=== PATIENT | male | born 1960 | race African-American/Black ===

== ENCOUNTER 2025-04-07 11:49 | Inpatient (IN) | payer OTHER ==
[~2025-04-07] VITALS: Ht 185.4 cm; Wt 129.3 kg
[2025-04-07] MEDS ORDERED: ONDANSETRON HCL/PF 4 MG/2 ML VIAL ONE ×2 (12:36→16:32)
[2025-04-07] MEDS ORDERED: MORPHINE SULFATE INJ 4 MG/ML DISP.SYRIN ONE ×2 (12:37→16:32)
[2025-04-07] MEDS: ONDANSETRON HCL/PF - ER 4 MG/2 ML VIAL IV ONE ×2 (12:57→16:34)
[2025-04-07] MEDS: MORPHINE SULFATE INJ 2 MG/ML DISP.SYRIN IV ONE ×2 (12:59→16:35)
[2025-04-07] MEDS: IV NS 0.9% 1,000 ML BAG IV ONE (13:00)
[2025-04-07 13:08] LABS: PLATELET COUNT (AUTO) 297 K/uL (150-450); RED BLOOD CELL COUNT(AUTO) 4.51 MIL/uL (4.5-6.0); RED CELL DISTRIBUTION WIDTH 13.7 % (11.5-15.0); WHITE BLOOD COUNT (AUTO) 8.5 K/uL (4.3-11.0)
[2025-04-07 13:20] LABS: CALCIUM, SERUM 9.3 mg/dL (8.5-10.1); CREATININE 1.0 mg/dL (0.6-1.3); SODIUM SERUM 133.0 mmol/L (136-145); UREA NITROGEN, BLOOD 20.0 mg/dL (7-18)
[2025-04-07 13:26] LABS: ASPARTATE AMINOTRANSFERASE 23.0 U/L (15-37); TOTAL PROTEIN, SERUM 8.2 g/dL (6.4-8.2)
[2025-04-07 13:28] LABS: INR 1.02 (0.91-1.10); LACTIC ACID 1.3 mmol/L (0.4-2.0)
[2025-04-07] MEDS ORDERED: APIX5TAB PO (13:42)
[2025-04-07] MEDS ORDERED: HYDR25TA4 PO (13:42)
[2025-04-07] MEDS ORDERED: AMLO-212 PO (13:42)
[2025-04-07 15:20] LABS: APPEARANCE,URINE CLEAR (CLEAR); BLOOD, URINE TRACE-INTA Ery/uL (NEGATIVE); LEUKOCYTE ESTERASE ,URINE NEGATIVE (NEGATIVE); NITRITE, URINE NEGATIVE (NEGATIVE); UGLUCOSE NEGATIVE (NEGATIVE)
[2025-04-07 15:35] LABS: ADD URINE CULTURE NO
[2025-04-07 15:36] LABS: SQUAMOUS EPITHELIAL CELL,UR Rare /HPF (None Seen)
[2025-04-07] MEDS: CEFEPIME 1 GM in IV D5W 50 ML IV ONE (17:38)
[2025-04-07] MEDS: VANCOMYCIN 1 GM in IV D5W 250 ML IV ONE (17:43)
[2025-04-07 20:00] VITALS: BP 154/92; TEMP 99; O2SAT 99
[2025-04-07] MEDS ORDERED: DOSING PER PHARMACY-VANCOMYCIN IV XX PRN (21:00)
[2025-04-07] MEDS ORDERED: HEPARIN SODIUM, PORCINE 5000 UNITS/1 ML VIAL SQ SCH (21:00)
[2025-04-07] MEDS ORDERED: ONDANSETRON HCL/PF 4 MG/2 ML VIAL IVP PRN (21:00)
[2025-04-07] MEDS ORDERED: Z GUARD REMEDY 4 OZ OINT TP PRN (21:00)
[2025-04-07] MEDS ORDERED: MAG HYDROX/AL HYDROX/SIMETH 30 ML UDC PO PRN (21:00)
[2025-04-07] MEDS ORDERED: MAGNESIUM HYDROXIDE 30 ML UDC PO PRN (21:00)
[2025-04-07] MEDS ORDERED: ZOLPIDEM TARTRATE 5 MG TABLET PO PRN (21:00)
[2025-04-07] MEDS: HYDROCODONE/APAP 5/325MG TABLET PO PRN (22:03)
[2025-04-08] MEDS ORDERED: CEFEPIME 1 GM VIAL ONE (00:45)
[2025-04-08 04:33] VITALS: BP 146/82; TEMP 98.6; O2SAT 99
[2025-04-08] MEDS: CEFEPIME 2 GM in IV D5W 100 ML IV ONE (05:01)
[2025-04-08] MEDS: VANCOMYCIN 1 GM in IV D5W 250 ML IV ONE (06:08)
[2025-04-08] MEDS: VANCOMYCIN 1 GM /D5W 250 ML PB IV ONE (07:00)
[2025-04-08 07:28] LABS: PLATELET COUNT (AUTO) 271 K/uL (150-450); RED BLOOD CELL COUNT(AUTO) 3.93 MIL/uL (4.5-6.0); RED CELL DISTRIBUTION WIDTH 13.4 % (11.5-15.0); WHITE BLOOD COUNT (AUTO) 6.8 K/uL (4.3-11.0)
[2025-04-08 07:52] LABS: CALCIUM, SERUM 8.6 mg/dL (8.5-10.1); CREATININE 0.9 mg/dL (0.6-1.3); PHOSPHORUS 3.3 mg/dL (2.5-4.9); SODIUM SERUM 136.0 mmol/L (136-145); UREA NITROGEN, BLOOD 13.0 mg/dL (7-18)
[2025-04-08 08:00] VITALS: BP 150/84; TEMP 99.5; O2SAT 99
[2025-04-08] MEDS: HYDROCHLOROTHIAZIDE 25 MG TABLET PO SCH (10:08)
[2025-04-08] MEDS: AMLODIPINE BESYLATE 5 MG TABLET PO SCH (10:08)
[2025-04-08] MEDS: APIXABAN 5 MG TABLET PO SCH (10:09)
[2025-04-08] MEDS: PANTOPRAZOLE 40 MG TABLET.DR PO SCH (10:09)
[2025-04-08 16:00] VITALS: BP 133/86; TEMP 98.9; O2SAT 100
[2025-04-08] MEDS: CEFEPIME 2 GM in IV D5W 100 ML IV SCH (16:06)
[2025-04-08 16:15] LABS: HIV-1/2 ANTIBODY NON REACTIVE (NONREACTIVE)
[2025-04-08] MEDS: VANCOMYCIN HCL 1.25 GM in IV D5W 250 ML IV SCH (17:00)
[2025-04-08 20:00] VITALS: BP 147/76; TEMP 98.5; O2SAT 100
[2025-04-09 04:00] VITALS: BP 133/67; TEMP 98.9; O2SAT 100
[2025-04-09 07:02] LABS: PLATELET COUNT (AUTO) 317 K/uL (150-450); RED BLOOD CELL COUNT(AUTO) 4.13 MIL/uL (4.5-6.0); RED CELL DISTRIBUTION WIDTH 13.5 % (11.5-15.0); WHITE BLOOD COUNT (AUTO) 6.4 K/uL (4.3-11.0)
[2025-04-09 07:54] LABS: CALCIUM, SERUM 9.3 mg/dL (8.5-10.1); CREATININE 1.1 mg/dL (0.6-1.3); SODIUM SERUM 135.0 mmol/L (136-145); UREA NITROGEN, BLOOD 15.0 mg/dL (7-18)
[2025-04-09 08:10] VITALS: BP 147/79; TEMP 98.2; O2SAT 100
[2025-04-09] MEDS: DAKINS QUARTER STRENGTH (0.125%) 480 ML BOTTLE TOP SCH (08:25)
[2025-04-09 16:10] VITALS: BP 140/79; TEMP 98.1; O2SAT 100
[2025-04-09 20:00] VITALS: BP 141/85; TEMP 98.5; O2SAT 96
[2025-04-10 04:00] VITALS: BP 140/72; TEMP 98; O2SAT 94
[2025-04-10 07:25] LABS: CALCIUM, SERUM 9.3 mg/dL (8.5-10.1); CREATININE 1.0 mg/dL (0.6-1.3); SODIUM SERUM 137.0 mmol/L (136-145); UREA NITROGEN, BLOOD 17.0 mg/dL (7-18)
[2025-04-10 08:00] VITALS: BP 126/79; TEMP 97.5; O2SAT 98
[2025-04-10] MEDS: ACETAMINOPHEN 325 MG TABLET PO PRN (11:24)
[2025-04-10 16:00] VITALS: BP 128/71; TEMP 98.4; O2SAT 100
[2025-04-10] MEDS: HYDROCODONE/APAP 10/325MG TABLET PO PRN (16:51)
[2025-04-10 19:06] LABS: CHLAMYDIA TRACHOMATIS NAA Negative (Negative); NEISSERIA GONORRHOEAE NAA Negative (Negative)
[2025-04-10 20:00] VITALS: BP 152/77; TEMP 98.1; O2SAT 99
[2025-04-11 04:00] VITALS: BP 155/92; TEMP 98.2; O2SAT 99
[2025-04-11 08:00] VITALS: BP 142/80; TEMP 98.1; O2SAT 97
[2025-04-11 08:11] LABS: CALCIUM, SERUM 9.3 mg/dL (8.5-10.1); CREATININE 1.0 mg/dL (0.6-1.3); SODIUM SERUM 135.0 mmol/L (136-145); UREA NITROGEN, BLOOD 16.0 mg/dL (7-18)
[2025-04-11 08:56] VITALS: BP 142/80
== END 2025-04-11 14:45 | disposition home health service (06) | DRG 364 ==
LOC: ER 11:57 → MEDSG1 16:55
PROVIDERS: ADMIT Registered Nurse Psychiatric/Mental Health; ATTEND Nurse Practitioner Acute Care
PROC: 0KBT0ZZ Excision of Left Lower Leg Muscle, Open Approach (ICD-10-PCS; principal; 2025-04-08)
DX: L03.116 Cellulitis of left lower limb (principal); E44.1 Mild protein-calorie malnutrition; E88.09 Other disorders of plasma-protein metabolism, not elsewhere classified; E87.1 Hypo-osmolality and hyponatremia; I80.9 Phlebitis and thrombophlebitis of unspecified site; L97.929 Non-pressure chronic ulcer of unspecified part of left lower leg with unspecified severity; I83.93 Asymptomatic varicose veins of bilateral lower extremities; I87.8 Other specified disorders of veins; N40.0 Benign prostatic hyperplasia without lower urinary tract symptoms; Z59.00 Homelessness unspecified; I10 Essential (primary) hypertension; Z86.718 Personal history of other venous thrombosis and embolism; E11.65 Type 2 diabetes mellitus with hyperglycemia; R79.89 Other specified abnormal findings of blood chemistry; F17.200 Nicotine dependence, unspecified, uncomplicated; F20.9 Schizophrenia, unspecified; Z79.01 Long term (current) use of anticoagulants; Z79.899 Other long term (current) drug therapy
CPT/HCPCS: 36415; 71045-TC; 80048-TC; 80076-TC; 80202-TC; 81001; 83605-TC; 83735-TC; 84100-TC; 85025-TC; 85730-TC; 87040-TC; 87086-TC; 87491; 87591; 87806; 93971-TC; 97116-TC; 97530-TC; 98960; A4223; A6403; G0378; J0692; J2270; J2405; J3373; J7030; J7050; J7060